=== PATIENT | female | born 1955 | race Caucasian/White ===

== ENCOUNTER → 2016-12-13 | Outpatient (CLI) | payer OTHER | LOC: EXRD 15:00 | DX: M25.561 Pain in right knee (principal) | CPT/HCPCS: 73560 ==

== ENCOUNTER 2020-11-02 16:25 | Emergency (ER) | payer MEDICARE, OTHER ==
[~2020-11-02 16:25] MED LIST: ALENDRONATE SOD70 MG PO; ASPIR 8181 MG PO; CEFUROXIME500 MG PO; CLARITIN 10MG T10 MG PO; ELIQUIS 5 MG TAB5 MG PO; FLEXERIL 10 MG10 MG PO; JANUVIA100 MG PO; KLONOPIN TAB 00.5 MG PO; LASIX TAB 20 MG20 MG PO; LEVOTHYROXINE25 MCG PO; NEURONTIN 300300 MG PO; NORCO 7.5-3251 EACH PO; PROZAC 20 MG CA20 MG PO; PROZAC40 MG PO; VENTOLIN HFA 66.7 GM INH; VITAMIN B-1000 MCG/M IM; VITAMIN D31000 UNIT PO; VITAMIN D350000 UNIT PO
[2020-11-02] MEDS ORDERED: CEPHALEXIN500 M1 PO (17:09)
== END 2020-11-02 17:26 | disposition home or self-care (01) ==
LOC: ER1 16:25
DX: L03.116 Cellulitis of left lower limb (principal); L03.115 Cellulitis of right lower limb; M79.662 Pain in left lower leg; M79.652 Pain in left thigh; E11.9 Type 2 diabetes mellitus without complications; I10 Essential (primary) hypertension; I25.10 Atherosclerotic heart disease of native coronary artery without angina pectoris; Z88.7 Allergy status to serum and vaccine; Z95.0 Presence of cardiac pacemaker
CPT/HCPCS: 99283

== ENCOUNTER → 2020-11-17 | Outpatient (CLI) | payer MEDICARE, OTHER ==
[~2020-11-17] MED LIST changes: +CEPHALEXIN500 M1 PO
== END ==
LOC: KOH-I 10:56
DX: L03.116 Cellulitis of left lower limb (principal); R22.42 Localized swelling, mass and lump, left lower limb
CPT/HCPCS: 93971

== ENCOUNTER 2020-12-14 14:56 | Emergency (ER) | payer MEDICARE, OTHER | END 2020-12-14 16:31 | disposition home or self-care (01) | LOC: ER1 14:56 | DX: S93.402A Sprain of unspecified ligament of left ankle, initial encounter (principal); S83.92XA Sprain of unspecified site of left knee, initial encounter; S73.101A Unspecified sprain of right hip, initial encounter; E11.9 Type 2 diabetes mellitus without complications; I10 Essential (primary) hypertension; W19.XXXA Unspecified fall, initial encounter | CPT/HCPCS: 73502; 73564; 73610; 99283 ==

== ENCOUNTER → 2021-10-26 | Outpatient (CLI) | payer MEDICARE, OTHER | LOC: EXRD 11:13 | DX: M25.552 Pain in left hip (principal); M79.652 Pain in left thigh; M25.562 Pain in left knee; M85.852 Other specified disorders of bone density and structure, left thigh; M16.12 Unilateral primary osteoarthritis, left hip; M17.12 Unilateral primary osteoarthritis, left knee | CPT/HCPCS: 73502; 73552; 73562 ==

== ENCOUNTER → 2021-11-06 | Outpatient (CLI) | payer MEDICARE, OTHER | LOC: CT 11-02 09:00 | DX: R10.9 Unspecified abdominal pain (principal); R93.3 Abnormal findings on diagnostic imaging of other parts of digestive tract | CPT/HCPCS: 36415; 82565; 84520; Q9965 ==

== ENCOUNTER → 2021-12-01 | Outpatient (CLI) | payer MEDICARE, OTHER | LOC: MAMO 11-20 15:30 | DX: Z12.31 Encounter for screening mammogram for malignant neoplasm of breast (principal); Z90.710 Acquired absence of both cervix and uterus | CPT/HCPCS: 77063; 77067 ==